=== PATIENT | female | born 2000 | race Caucasian/White ===

== ENCOUNTER 2019-01-10 23:40 | Emergency (ER) | payer OTHER, MEDICAID ==
--- NOTE | 2019-01-11 00:01 | EDM.PDOC ---
ED HPI GENERAL MEDICAL PROBLEM - General Chief Complaint: Skin Complaint Stated Complaint: INFECTION IN BELLY BUTTON Time Seen by Provider: 01/11/19 00:00 Source of Information: Reports: Patient, Family History Limitations: Reports: No Limitations - History of Present Illness INITIAL COMMENTS - FREE TEXT/NARRATIVE: 18-year-old female has an inflamed umbilicus for the past week, seems to be worse over the past 2-3 days. She was seen and evaluated in [facility] ER yesterday and started on cephalexin, today she is vomiting more because the medicine is making her sick and it does not seem to be getting better. No fevers or chills. 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: - Past Surgical History HEENT Surgical History: Reports: Naso-Sinus Surgery, Tonsillectomy Social & Family History - Tobacco Use Smoking Status *Q: Current Every Day Smoker Years of Tobacco use: 2 Packs/Tins Daily: 0.4 - Recreational Drug Use Recreational Drug Use: No ED ROS GENERAL - Review of Systems Review Of Systems: See Below Constitutional: Denies: Fever, Chills, Malaise HEENT: Reports: No Symptoms Respiratory: Denies: Shortness of Breath Cardiovascular: Denies: Chest Pain GI/Abdominal: Reports: Abdominal Pain (Especially when sitting up), Nausea, Vomiting : Reports: No Symptoms Skin: Reports: Erythema (Umbilical erythema, swelling) Neurological: Reports: No Symptoms ED EXAM, SKIN/RASH Exam: See Below Exam Limited By: No Limitations General Appearance: Alert, No Apparent Distress Head: Atraumatic Respiratory/Chest: No Respiratory Distress GI/Abdominal: Other (Exam of the abdomen reveals a somewhat edematous inflamed umbilicus with a small amount of periumbilical erythema and tenderness to palpation.) Course - Vital Signs Last Recorded V/S: Last Vital Signs Temp 96.5 F 01/10/19 23:57 Pulse 82 01/10/19 23:57 Resp 15 01/10/19 23:57 BP 136/82 01/10/19 23:57 Pulse Ox 98 01/10/19 23:57 - Orders/Labs/Meds Meds: Medications Discontinued Medications Generic Name Dose Route Start Last Admin Trade Name Héctor PRN Reason Stop Dose Admin Ceftriaxone Sodium 1 gm/ 0 gm 01/11/19 00:53 01/11/19 00:54 Lidocaine HCl 2.1 ml IM 01/11/19 00:54 1 inj ONETIME ONE Administration Lidocaine HCl 5 ml 01/11/19 00:14 01/11/19 00:20 Xylocaine-Mpf 1% INJECT 01/11/19 00:15 5 ml ONETIME ONE Administration Lidocaine HCl Confirm 01/11/19 00:51 Xylocaine-Mpf 1% Administered 01/11/19 00:52 Dose 5 ml .ROUTE .STK-MED ONE - Re-Assessments/Exams Free Text/Narrative Re-Assessment/Exam: 01/11/19 00:51 Initially the periumbilical and umbilicus were sterilized with Betadine, infiltrated with 1% lidocaine and an 11 blade scalpel was used to carefully provide a tiny puncture to the umbilicus. Only blood returned. I then considered ordering the ultrasound of the area to look for abscess when she mentioned that an ultrasound was done yesterday, she had not provided that information earlier. This was looked up on the [facility] records and an abdominal ultrasound was performed with the intention of diagnosing a hernia or abscess. There was edema but no discrete abscess or hernia seen. I'm going to ask her to hold the cephalexin for 24 hours, and instead give her 1 g of IM Rocephin and discharged with 5 doses of Zofran when she reinitiates the cephalexin in 36 hours. She should recheck if worsening despite treatment. Departure - Departure Time of Disposition: 01:07 Disposition: Home, Self-Care 01 Condition: Good Clinical Impression: Cellulitis of periumbilical region - Discharge Information Instructions: Cellulitis, Adult, [id number] Referrals: PCP,None [Primary Care Provider] - Forms: ED Department Discharge Care Plan Goals: Hold the oral antibiotic until Saturday morning, warm compresses to the area may be beneficial. Okay to use some ibuprofen or naproxen for discomfort. Consider rechecking in 2-3 days if worsening despite treatment. Use Zofran for nausea and vomiting when reinitiating the oral antibiotic on Saturday.
[2019-01-11] MEDS ORDERED: cefTRIAXone 1 GM Vial IM ONE (00:43)
[2019-01-11] MEDS ORDERED: cefTRIAXone 1 GM, Lidocaine 1% 2.1 ML IM ONE ×2 (00:53)
== END 2019-01-11 01:15 | disposition home or self-care (01) ==
LOC: JP.ED 23:40
DX: L03.316 Cellulitis of umbilicus (principal); F17.210 Nicotine dependence, cigarettes, uncomplicated; Z88.5 Allergy status to narcotic agent
CPT/HCPCS: 10140; 96372; 99283; J0696; J2001